=== PATIENT | male | born 1995 | race African-American/Black ===

== ENCOUNTER 2018-01-30 17:24 | Emergency (ER) | payer SELFPAY ==
[2018-01-30] MEDS: IBUPROFEN 600 MG TAB PO (17:59)
[2018-01-30] MEDS: HYDROCODONE/APAP (5/325) TAB PO (17:59)
[2018-01-30] MEDS: DIPHTH/TET/ACEL PERTUSS (ADULT) 0.5 ML VIAL IM (17:59)
[2018-01-30] MEDS: LIDOCAINE 1% (MDV) 10 ML INJ INJ (18:04)
== END 2018-01-30 19:56 | disposition home or self-care (01) ==
LOC: FTE 17:24
DX: S91.312A Laceration without foreign body, left foot, initial encounter (principal); W22.8XXA Striking against or struck by other objects, initial encounter; Y92.9 Unspecified place or not applicable
CPT/HCPCS: 12002; 73630-LT; 90471; 90715; 99284-25

== ENCOUNTER 2018-02-12 09:46 | Emergency (ER) | payer SELFPAY | END 2018-02-12 10:40 | disposition left against medical advice (07) | LOC: FTE 09:46 | DX: Z48.02 Encounter for removal of sutures (principal); J45.909 Unspecified asthma, uncomplicated | CPT/HCPCS: 99281 ==